=== PATIENT | male | born 1970 | race Hispanic/Latino ===

== ENCOUNTER 2018-10-29 06:33 | Day surgery (SDC) | payer OTHER ==
[2016-04-18 07:15] VITALS: BMI 21.2
[2018-10-29 07:30] VITALS: O2SAT 100
--- NOTE | 2018-10-29 09:10 | CP.SDSHP ---
Same Day Surgery H & P - History Proposed Procedure: egd Pre-Op Diagnosis: heartburn. epigastric pain - Previous Medical/Surgical History Pulmonary: Other ([facility]) Misc: Other (gastritis, gerd, hiatal hernia, PUD, ) - Allergies Allergies: Allergies No Known Allergies Allergy (Verified 10/28/18 11:09) - Physical Exam Vital Signs: Vital Signs 10/29/18 07:27 Temperature 97.6 F Pulse Rate 72 Respiratory 19 Rate Blood Pressure 128/81 O2 Sat by Pulse 100 Oximetry Mental Status: Alert & Oriented x3 Neuro: WNL Heart: WNL Lungs: WNL GI: WNL - Impression Impression: epigastric pain. heartburn refractory to therapy Pt. Evaluated Today:Candidate for Anesthesia & Procedure: Yes - Date & Time Date: 10/29/18 Time: 09:10 Short Stay Discharge - Short Stay Discharge Admitting Diagnosis/Reason for Visit: EPIGASTRIC PAIN, HEARTBURN, GERD Disposition: HOME/ ROUTINE
[2018-10-29] MEDS ORDERED: Propofol 10 mg/ml Inj (20 ML) ONE (09:13)
[2018-10-29] MEDS ORDERED: Pantoprazole 40 mg EC Tab PO STA (09:13)
[2018-10-29] MEDS ORDERED: Midazolam 2 MG/2 ML VIAL ONE (09:13)
[2018-10-29 10:23] VITALS: RESP 12; TEMP 97.5
[2018-10-29 11:22] VITALS: BP 114/71; PULSE 64
== END 2018-10-29 10:45 | disposition home or self-care (01) ==
LOC: C.ENDO 06:33
PROVIDERS: ATTEND Internal Medicine Gastroenterology
DX: K29.70 Gastritis, unspecified, without bleeding (principal); K20.9 Esophagitis, unspecified; R10.13 Epigastric pain; R12 Heartburn; K21.9 Gastro-esophageal reflux disease without esophagitis
CPT/HCPCS: 43239; 88305; 88312; 88313; 88342; J2250; J2704